=== PATIENT | male | born 1955 | race Caucasian/White ===

== ENCOUNTER 2019-02-13 00:31 | Emergency (ER) | payer MEDICARE ==
[~2019-02-13] VITALS: Ht 188 cm; Wt 90.7 kg
[2019-02-13] MEDS ORDERED: Norco 5-325 Ta1 EACH PO (01:45)
== END 2019-02-13 02:04 | disposition home or self-care (01) ==
LOC: ER 00:31
DX: T23.002A Burn of unspecified degree of left hand, unspecified site, initial encounter (principal); X08.8XXA Exposure to other specified smoke, fire and flames, initial encounter
CPT/HCPCS: A9270-GY